=== PATIENT | female | born 1995 | race Caucasian/White ===

== ENCOUNTER 2016-11-01 21:55 | Emergency (ER) | payer MEDICAID ==
[~2016-11-01] VITALS: Ht 154.9 cm; Wt 52.6 kg
[2016-11-01 21:58] VITALS: BP 122/84
--- NOTE | 2016-11-01 22:03 | NUR ---
PATIENT AMBULATED TO ER OF1.
--- NOTE | 2016-11-01 22:30 | NUR ---
PATIENT BEING EVALUATED BY DR. WALKER.
[2016-11-01 22:40] VITALS: BP 117/74
== END 2016-11-01 22:40 | disposition home or self-care (01) ==
LOC: MED 21:55
DX: H66.93 Otitis media, unspecified, bilateral (principal); R20.2 Paresthesia of skin
CPT/HCPCS: 99283

== ENCOUNTER 2018-03-15 16:09 | Emergency (ER) | payer MEDICAID ==
[~2018-03-15] VITALS: Ht 154.9 cm; Wt 61.2 kg
[2018-03-15 16:21] VITALS: BP 125/78
[2018-03-15 18:19] VITALS: BP 130/75
== END 2018-03-15 18:20 | disposition home or self-care (01) ==
LOC: MED 16:09
DX: K21.9 Gastro-esophageal reflux disease without esophagitis (principal)
CPT/HCPCS: 70360; 87081; 99285

== ENCOUNTER 2018-05-29 01:59 | Emergency (ER) | payer MEDICAID ==
[~2018-05-29] VITALS: Ht 154.9 cm; Wt 57.2 kg
--- NOTE | 2018-05-29 02:02 | NUR ---
PT AMBULATED TO ER BED 11
--- NOTE | 2018-05-29 02:02 | NUR ---
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 Reports she has been stressed lately concerned about a "lump" in her throat after coughing for several days. Pt is AOX4, GCS 15, NAD at this time. Pt is calm and cooperative. HR 120's on monitor. Denies any pain at this time. Denies PMH
[2018-05-29 02:06] VITALS: BP 120/75
[2018-05-29 02:38] VITALS: BP 118/72
== END 2018-05-29 02:38 | disposition home or self-care (01) ==
LOC: MED 01:59
DX: F41.9 Anxiety disorder, unspecified (principal); R22.1 Localized swelling, mass and lump, neck
CPT/HCPCS: 99284

== ENCOUNTER 2018-06-02 08:15 | Emergency (ER) | payer MEDICAID ==
[~2018-06-02] VITALS: Ht 160 cm; Wt 55.4 kg
[2018-06-02 08:22] VITALS: BP 139/77
[2018-06-02 09:28] VITALS: BP 120/75
== END 2018-06-02 09:28 | disposition home or self-care (01) ==
LOC: MED 08:15
DX: F41.0 Panic disorder [episodic paroxysmal anxiety] (principal)
CPT/HCPCS: 99284

== ENCOUNTER 2018-06-20 09:15 | Emergency (ER) | payer MEDICAID ==
[~2018-06-20] VITALS: Ht 162.6 cm; Wt 56.4 kg
[2018-06-20 09:17] VITALS: BP 123/80
--- NOTE | 2018-06-20 09:23 | NUR ---
pt ambulates to give urine sample at this time.
--- NOTE | 2018-06-20 09:26 | NUR ---
23 yo f bib self w/ c/o uti symptoms since yesterday. reports that she has been admitted for pyelonephritis r/t uti in the past here at [facility]. reports this time she has also had upper back pain w/ the flank pain and dysuria. denies n/v/d/fever
[2018-06-20] MEDS ORDERED: PHENAZOPYRIDINE 100 MG TAB PO ONE (09:55)
[2018-06-20 10:31] VITALS: BP 123/80
--- NOTE | 2018-06-20 10:31 | NUR ---
Patient discharged with v/s stable. Written and verbal after care instructions given and explained. Patient alert, oriented and verbalized understanding of instructions. Ambulatory with steady gait. All questions addressed prior to discharge. ID band removed. Patient advised to follow up with PMD. Rx of bactrim, phenazopyridine given. Patient educated on indication of medication including possible reaction and side effects. Opportunity to ask questions provided and answered.
== END 2018-06-20 10:31 | disposition home or self-care (01) ==
LOC: MED 09:15
DX: N39.0 Urinary tract infection, site not specified (principal)
CPT/HCPCS: 81002; 81025; 99283

== ENCOUNTER 2018-06-21 21:09 | Emergency (ER) | payer MEDICAID ==
[~2018-06-21] VITALS: Ht 154.9 cm; Wt 55.8 kg
[2018-06-21 21:21] VITALS: BP 106/70
--- NOTE | 2018-06-21 23:36 | NUR ---
PT AMBULATED TO ER BED 07
--- NOTE | 2018-06-21 23:50 | NUR ---
23/F PRESENTS TO ED, C/O FLANK AND LOWER BACK PAIN AND SUPRAPUBIC PAIN, X2 DAYS. PT REPORTS MINIMAL BURNING DYSURIA. PT DENIES FEVER, N/V/D. PT REPORTS TAKING IBUPROFEN WITH LITTLE RELIEF. PT AOX4, GCS 15, RR EVEN AND UNLABORED. LUNG SOUNDS CLEAR BL. DENIES MED HX OR RX.
--- NOTE | 2018-06-22 00:30 | NUR ---
DR ZARAGOZA AT BEDSIDE
[2018-06-22 00:56] VITALS: BP 105/61
== END 2018-06-22 00:56 | disposition home or self-care (01) ==
LOC: MED 21:09
DX: S39.012A Strain of muscle, fascia and tendon of lower back, initial encounter (principal); X58.XXXA Exposure to other specified factors, initial encounter; Y93.89 Activity, other specified; Y92.89 Other specified places as the place of occurrence of the external cause; Y99.8 Other external cause status
CPT/HCPCS: 81002; 81025; 99284

== ENCOUNTER 2018-06-26 02:08 | Emergency (ER) | payer MEDICAID ==
[~2018-06-26] VITALS: Ht 154.9 cm; Wt 53.5 kg
[2018-06-26 02:23] VITALS: BP 123/91
--- NOTE | 2018-06-26 02:23 | NUR ---
PT AMBULATED TO BED 6 WITH VSS.
--- NOTE | 2018-06-26 02:45 | NUR ---
Dr. Viveros evaluating patient at bedside.
--- NOTE | 2018-06-26 02:46 | NUR ---
PT BIB SELF VIA WALKING FOR ANXIETY. PT REPORTS FEELING ANXIOUS AND HER HEART BEAT IS FAST, HEART RATE IS CURRENTLY 116. PT DENIES CP, SOB, HEADACHE, BLURRED VISSION, DIZZYNESS, AND N/V. CAP REFIL <3 SEC, NO EDEMA PRESENT. RR SYMMETRICAL AND NON-LABORED. VSS. 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 PT 3RD CHILD WAS BORN 9 MONTHS AGO. PT DENIES SI. ER MD TO SEE PT. SIDE RAIL UP X1, BED IN LOWEST POSITION, HOB ELEVATED. WILL CONTINUE TO MONITOR. MEDHX: ANXIETY RX:ATIVAN
[2018-06-26] MEDS ORDERED: LORazepam 2 MG/ML VIAL IM ONE (02:50)
--- NOTE | 2018-06-26 03:54 | NUR ---
PT RESTING IN BED, VSS, NO APPARENT DISTRESS. PT REPORTS NO ANXIETY AT THIS TIME AND THAT SHE FEELS RELAXED. HOB ELEVATED, SIDE RAIL UPX1, BED IN LOWEST POSITION. WILL CONTINUE TO MONITOR.
[2018-06-26 06:14] VITALS: BP 109/59
== END 2018-06-26 06:14 | disposition home or self-care (01) ==
LOC: MED 02:08
DX: F41.9 Anxiety disorder, unspecified (principal); R03.0 Elevated blood-pressure reading, without diagnosis of hypertension
CPT/HCPCS: 96372; 99284; J2060; 99283

== ENCOUNTER 2018-06-28 07:57 | Emergency (ER) | payer MEDICAID ==
[~2018-06-28] VITALS: Ht 154.9 cm; Wt 53.1 kg
[2018-06-28 08:04] VITALS: BP 116/67
--- NOTE | 2018-06-28 08:04 | NUR ---
PT AMBULATED TO ER BED 04
--- NOTE | 2018-06-28 08:14 | NUR ---
Note undone in EDM - 06/28/18 at 0830 by MED1 PT C/O ANXIETY, FATIGUE, RACING HEART, CONCERENED POTASSIUM LEVELS MAY BE LOW. FEELINGS STARTED 2 DAYS AGO. DENIES PAIN. LMP 06/27/2018. DENIES N/V/D, SOB, FEVER, COUGH. LAST BM THIA AM: NORMAL. LMP 06/27/18. G 3. LAST GIVING X 5 MONTHS AGO. HX: DENIES RX: DENIES
--- NOTE | 2018-06-28 08:14 | NUR ---
PT C/O ANXIETY, FATIGUE, RACING HEART, CONCERENED POTASSIUM LEVELS MAY BE LOW. FEELINGS STARTED 2 DAYS AGO. DENIES PAIN. LMP 06/27/2018. DENIES N/V/D, SOB, FEVER, COUGH. LAST BM THIS AM: NORMAL. LMP 06/27/18. G 3. LAST GIVING X 5 MONTHS AGO. DENIES TO HURT HERSELF OR OTHERS. SKIN IS PINK/WARM/DRY. PATIENT POSITIONED FOR COMFORT; HOB ELEVATED; BEDRAILS UP X2; BED DOWN. ER MD MADE AWARE OF PT STATUS HX: DENIES RX: DENIES
--- NOTE | 2018-06-28 08:45 | NUR ---
Patient being evaluated by DR HILL at bedside.
--- NOTE | 2018-06-28 08:54 | NUR ---
LAB AT BEDSIDE.
[2018-06-28 09:21] LABS: ANION GAP 13.2 (8-16); CARBON DIOXIDE 26.1 mmol/L (21-32); CREATININE 0.7 mg/dL (0.6-1.3); POTASSIUM 3.3 mmol/L (3.5-5.1)
[2018-06-28] MEDS ORDERED: POTASSIUM CHLORIDE 10 MEQ TABER PO ONE (09:35)
[2018-06-28] MEDS ORDERED: MAGNESIUM OXIDE 400 MG TAB PO ONE (09:35)
[2018-06-28 09:59] VITALS: BP 115/87
--- NOTE | 2018-06-28 09:59 | NUR ---
Patient discharged with v/s stable. Written and verbal after care instructions given and explained. Patient verbalized understanding. Ambulatory with steady gait. All questions addressed prior to discharge. Advised to follow up with PMD.
== END 2018-06-28 09:59 | disposition home or self-care (01) ==
LOC: MED 07:57
DX: F41.9 Anxiety disorder, unspecified (principal); E87.6 Hypokalemia; F32.9 Major depressive disorder, single episode, unspecified
CPT/HCPCS: 36415; 80048; 99283; 99284

== ENCOUNTER 2018-07-15 13:23 | Emergency (ER) | payer MEDICAID ==
[~2018-07-15] VITALS: Ht 160 cm; Wt 54.4 kg
[2018-07-15 13:24] VITALS: BP 117/81
--- NOTE | 2018-07-15 14:51 | NUR ---
PT AMBULATES TO BED 3
--- NOTE | 2018-07-15 14:52 | NUR ---
PT PRESENTS TO THE ED WITH C/O LIGHTHEADEDNESS AND DIZZINESS. PT STATES THAT HER SYMPTOMS HAVE BEEN GOING ON FOR A WEEK. PT REPORTS THAT SHE WAS DIAGNOSED WITH POST DEPRESSION AND SHE HAS BEEN SEING A THERAPIST AND WAS RECECENTLY STARTED ON PROZAC 2WEEKS AGO. PT STATES THAT SHE WOKE UP "SHAKY" THIS MORNING. PATIENT DENIES PAIN. NO S/S OF DISTRESS NOTED AT THIS TIME
[2018-07-15 16:16] VITALS: BP 117/81
--- NOTE | 2018-07-15 16:17 | NUR ---
DPatient discharged with v/s stable. Written and verbal after care instructions given and explained. Patient verbalized understanding. Ambulatory with steady gait. All questions addressed prior to discharge. Advised to follow up with PMD.
== END 2018-07-15 16:17 | disposition home or self-care (01) ==
LOC: MED 13:23
DX: F41.9 Anxiety disorder, unspecified (principal); F53.0 Postpartum depression
CPT/HCPCS: 81002; 81025; 99284

== ENCOUNTER 2018-07-31 23:28 | Emergency (ER) | payer MEDICAID ==
[~2018-07-31] VITALS: Ht 154.9 cm; Wt 53.1 kg
[2018-07-31 23:34] VITALS: BP 133/80
--- NOTE | 2018-08-01 01:42 | NUR ---
PT AMBULATED TO THE RESTROOM, URINE WAS COLLECTED.
--- NOTE | 2018-08-01 01:43 | NUR ---
PT AMBULATED TO BED #11
--- NOTE | 2018-08-01 01:45 | NUR ---
PATIENT PRESENTS ER WITH C/O BURNING AND FOUL SMELL WHEN URINATING X 2 DAYS. PT IS A/O X4. PATIENT STATES PAIN OF 4/10 AT THIS TIME; VSS; PATIENT POSITIONED FOR COMFORT; HOB ELEVATED; BEDRAILS UP X2; BED DOWN. ER MD MADE AWARE OF PT STATUS. NKA AND NO MEDICAL HX
[2018-08-01 04:13] VITALS: BP 133/80
--- NOTE | 2018-08-01 04:13 | NUR ---
Patient discharged with v/s stable. Written and verbal after care instructions given and explained. Patient alert, oriented and verbalized understanding of instructions. Ambulatory with steady gait. All questions addressed prior to discharge. ID band removed. Patient advised to follow up with PMD. Rx of pyridium and cipro was given. Patient educated on indication of medication including possible reaction and side effects. Opportunity to ask questions provided and answered.
== END 2018-08-01 04:13 | disposition home or self-care (01) ==
LOC: MED 23:28
DX: N39.0 Urinary tract infection, site not specified (principal)
CPT/HCPCS: 81002; 81025; 99283

== ENCOUNTER 2018-08-01 16:47 | Emergency (ER) | payer MEDICAID ==
[~2018-08-01] VITALS: Ht 154.9 cm; Wt 53.1 kg
[2018-08-01 16:50] VITALS: BP 134/88
--- NOTE | 2018-08-01 17:28 | NUR ---
C/O 5/10 CRAMPING LOWER ABD PAIN RADIATING TO LOWER BACK X TODAY. BURNING URINATION. DENIES N/V/D, OR FERVER. PT WAS SEEN AT [facility] LAST NIGHT FOR UTI, PT STARTING TAKING ABX TO TODAY MEDHX:NONE RX: CIPROFLAXACIN
--- NOTE | 2018-08-01 18:19 | NUR ---
Patient being evaluated by DR BURNETT at bedside.
--- NOTE | 2018-08-01 18:19 | NUR ---
DR BURNETT AT BEDSIDE FOR PT EVALUATION
[2018-08-01] MEDS ORDERED: KETOROLAC 60 MG/2 ML VIAL IM ONE (18:30)
[2018-08-01] MEDS ORDERED: LACTULOSE 20 GM/30 ML UDC PO ONE (18:30)
[2018-08-01 19:02] VITALS: BP 125/67
--- NOTE | 2018-08-01 19:02 | NUR ---
Patient discharged with v/s stable. Written and verbal after care instructions given and explained. Patient alert, oriented and verbalized understanding of instructions. Ambulatory with steady gait. All questions addressed prior to discharge. ID band removed. Patient advised to follow up with PMD. Rx of COLESANDRA given. Patient educated on indication of medication including possible reaction and side effects. Opportunity to ask questions provided and answered.
== END 2018-08-01 19:02 | disposition home or self-care (01) ==
LOC: MED 16:47
DX: N39.0 Urinary tract infection, site not specified (principal); K59.00 Constipation, unspecified
CPT/HCPCS: 81002; 96372; 99283; J1885

== ENCOUNTER 2018-08-06 09:55 | Emergency (ER) | payer MEDICAID ==
[~2018-08-06] VITALS: Ht 162.6 cm; Wt 65.8 kg
--- NOTE | 2018-08-06 10:19 | NUR ---
Patient ambulated to ER bed 12
[2018-08-06 10:26] VITALS: BP 120/65
--- NOTE | 2018-08-06 10:29 | NUR ---
23Y/F BIB SELF WITH C/O FLANK PAIN X 5 DAYS. PT STATES SHE WAS HERE EARLIER THIS WEEK FOR A UTI, - BURNING, PAIN AND PRESSURE, PT IS AAOX4, VSS AT THIS TIME, BED DOWN, BEDRAIL UP X 1, ER MD AWARE AND NOTIFIED OF PT STATUS.
[2018-08-06 11:22] LABS: APPEARANCE,URINE CLEAR (CLEAR); BILIRUBIN,URINE NEGATIVE (NEGATIVE); BLOOD, URINE NEGATIVE (NEGATIVE); COLOR,URINE YELLOW (YELLOW); LEUKOCYTE ESTERASE ,URINE NEGATIVE (NEGATIVE); NITRITE, URINE NEGATIVE (NEGATIVE); PH,URINE 6.5 (5.0-9.0); UGLUCOSE NEGATIVE (NEGATIVE)
[2018-08-06 12:23] VITALS: BP 119/62
--- NOTE | 2018-08-06 12:24 | NUR ---
Patient discharged with v/s stable. Written and verbal after care instructions given and explained. Patient alert, oriented and verbalized understanding of instructions. Ambulatory with steady gait. All questions addressed prior to discharge. ID band removed. Patient advised to follow up with PMD. Rx of IBU given. Patient educated on indication of medication including possible reaction and side effects. Opportunity to ask questions provided and answered.
== END 2018-08-06 12:24 | disposition home or self-care (01) ==
LOC: MED 09:55
DX: M54.5 Low back pain (principal); R10.30 Lower abdominal pain, unspecified
CPT/HCPCS: 74018; 81003; 81025; 99284

== ENCOUNTER 2018-10-25 01:21 | Emergency (ER) | payer MEDICAID ==
[~2018-10-25] VITALS: Ht 154.9 cm; Wt 56.7 kg
[2018-10-25 01:25] VITALS: BP 110/82
--- NOTE | 2018-10-25 01:28 | NUR ---
27 Y/O FEMALE PRESENTS TO ED WITH C/O ANXIETY ATTACK X30 MIN. STATES SHE WAS AT HOME WHEN SHE FEELT HER HR ELEVATE AND COULD FEEL HER HEART POUNDING. PT BECAME NERVOUSE AND CAME TO ER. HR 121. NO C/O CP. NO SOB/DYSPNEA. POSITOINED IN BED FOR COMFORT. ER MD AWARE. CONTINUE TO MONITOR.
--- NOTE | 2018-10-25 01:28 | NUR ---
TO LOBBY A/W BED, AMBULATORY
[2018-10-25] MEDS ORDERED: LORazepam 0.5 MG TAB PO ONE (02:25)
--- NOTE | 2018-10-25 02:30 | NUR ---
PT IN BED RESTING WITH EYES OPEN. STATES ANXIETY HAS REDUCED. VSS. CONTINUE TO MONITOR.
--- NOTE | 2018-10-25 03:15 | NUR ---
PT NOTED RESTING WITH EYES CLOSED, RELAXED AND CALM. NAD NOTED. VSS. APPEARS COMFORTABLE.
[2018-10-25 03:28] VITALS: BP 100/67
--- NOTE | 2018-10-25 03:28 | NUR ---
Patient discharged with v/s stable. Written and verbal after care instructions given and explained. Patient alert, oriented and verbalized understanding of instructions. Ambulatory with steady gait. All questions addressed prior to discharge. ID band removed. Patient advised to follow up with PMD. Rx of Ativan 0.5 mg given. Patient educated on indication of medication including possible reaction and side effects. Opportunity to ask questions provided and answered.
== END 2018-10-25 03:28 | disposition home or self-care (01) ==
LOC: MED 01:21
DX: F41.9 Anxiety disorder, unspecified (principal)
CPT/HCPCS: 93005; 99284

== ENCOUNTER 2018-10-31 01:03 | Emergency (ER) | payer MEDICAID ==
[~2018-10-31] VITALS: Ht 154.9 cm; Wt 56.7 kg
--- NOTE | 2018-10-31 01:07 | NUR ---
PT AMBULATED TO ER BED 05
[2018-10-31 01:10] VITALS: BP 137/90
--- NOTE | 2018-10-31 01:12 | NUR ---
23 YO F BIB SELF C/O 10 DULL LOWER BACK PAIN THAT RADIATES INTO PELVIC REGION X 3 DAYS. PT STATES SHE WAS SEEN AT HER PMD X1 AGO AND WAS DX WITH UTI. SHE FINISHED HER ABX 2 DAYS AGO. SHE DENIES URINARY BURNING, FEVER/CHILLS, ABD PAIN, NVD, OR OTHER UTI S/SX AT THIS TIME. -- PT IS CALM, COOPERATIVE, ANSWERING QUESTIONS APPROPRIATELY. -- SKIN PINK, WARM, DRY. BREATHING EVEN, UNLABORED. PMH-- DENIES RX-- DENIES
[2018-10-31] MEDS ORDERED: KETOROLAC 60 MG/2 ML VIAL IM ONE (01:15)
[2018-10-31 02:07] VITALS: BP 126/86
--- NOTE | 2018-10-31 02:07 | NUR ---
Patient discharged with v/s stable. Written and verbal after care instructions given and explained. Patient alert, oriented and verbalized understanding of instructions. Ambulatory with steady gait. All questions addressed prior to discharge. ID band removed. Patient advised to follow up with PMD. Rx of Motrin and Cipro given. Patient educated on indication of medication including possible reaction and side effects. Opportunity to ask questions provided and answered.
== END 2018-10-31 02:07 | disposition home or self-care (01) ==
LOC: MED 01:03
DX: M54.5 Low back pain (principal)
CPT/HCPCS: 81002; 81025; 96372; 99283; J1885

== ENCOUNTER 2018-12-01 17:13 | Emergency (ER) | payer MEDICAID ==
[~2018-12-01] VITALS: Ht 154.9 cm; Wt 59.0 kg
[2018-12-01 17:36] VITALS: BP 126/93
--- NOTE | 2018-12-01 18:04 | NUR ---
PATIENT AMBULATED TO BED 3
--- NOTE | 2018-12-01 18:20 | NUR ---
PT BIB SELF WITH C/O BL FLANK PAIN SINCE LAST THREE DAYS.STATES TO HAVE PAIN 3/10 AT THIS TIME ., DENIES TRAUMA OR INJURY PT. DENIES ANY VAGINAL DISCHARGE, NO PROBLEM REGARDING URINATION. HAS HX OF FREQUENT UTI AND LOW K+. ER MD TO SEE THE PT. NKA.
[2018-12-01 18:54] LABS: APPEARANCE,URINE CLEAR (CLEAR); BILIRUBIN,URINE NEGATIVE (NEGATIVE); BLOOD, URINE NEGATIVE (NEGATIVE); COLOR,URINE YELLOW (YELLOW); LEUKOCYTE ESTERASE ,URINE NEGATIVE (NEGATIVE); NITRITE, URINE NEGATIVE (NEGATIVE); UGLUCOSE NEGATIVE (NEGATIVE)
[2018-12-01 19:00] LABS: BARBITURATE, URINE NEG. ng/ml (NEG <=200); BENZODIAZEPINE, URINE NEG. ng/mL (NEG <=200); CANNABINOID, URINE NEG. ng/mL (NEG <=50); COCAINE, URINE NEG. ng/mL (NEG <=300); OPIATE, URINE NEG. ng/mL (NEG <=2000); PHENCYCLIDINE SCREEN,URINE NEG. ng/mL (NEG <=25)
--- NOTE | 2018-12-01 19:18 | NUR ---
REPORT GIVEN TO PM NURSE. PT STABLE.
--- NOTE | 2018-12-01 19:23 | NUR ---
DR. JO AT BEDSIDE.
[2018-12-01] MEDS ORDERED: KETOROLAC 60 MG/2 ML VIAL IM ONE (19:25)
[2018-12-01 19:51] VITALS: BP 132/88
== END 2018-12-01 19:51 | disposition home or self-care (01) ==
LOC: MED 17:13
DX: R10.9 Unspecified abdominal pain (principal); M54.9 Dorsalgia, unspecified
CPT/HCPCS: 80305; 81003; 81025; 96372; 99283; J1885

== ENCOUNTER 2018-12-13 18:36 | Emergency (ER) | payer MEDICAID ==
[~2018-12-13] VITALS: Ht 154.9 cm; Wt 54.4 kg
[2018-12-13 19:15] VITALS: BP 124/95
--- NOTE | 2018-12-13 19:19 | NUR ---
PT TO LOBBY VSS.
--- NOTE | 2018-12-13 20:20 | NUR ---
PT AMBULATED TO BED WITH SON
--- NOTE | 2018-12-13 20:30 | NUR ---
23/F PRESENTS TO ED WITH PARTNER AND 2 KIDS, C/O PAIN ON R SIDE OF NECK AND R SHOULDER, X3 HRS S/P FALLING FROM BED WITH IMPACT TO R SHOULDER AND HER CHILD SUBSEQUENTLY JUMPING ON HER. PT DENIES LOC, N/V, OR CERVICAL SPINE TENDERNESS. PT AWAKE AND ALERT, PERRLA [place], SKIN NORMAL WARM AND DRY, RR EVEN AND UNLABORED DENIES MED HX OR RX.
[2018-12-13 21:00] VITALS: BP 118/80
--- NOTE | 2018-12-13 21:00 | NUR ---
Patient discharged with v/s stable. Written and verbal after care instructions given and explained. Patient alert, oriented and verbalized understanding of instructions. Ambulatory with steady gait. All questions addressed prior to discharge. ID band removed. Patient advised to follow up with PMD. Rx of ACETAMINOPHEN 500MG, IBUPROFEN 400MG given. Patient educated on indication of medication including possible reaction and side effects. Opportunity to ask questions provided and answered.
== END 2018-12-13 21:00 | disposition home or self-care (01) ==
LOC: MED 18:36
DX: S16.1XXA Strain of muscle, fascia and tendon at neck level, initial encounter (principal); W08.XXXA Fall from other furniture, initial encounter; Y93.89 Activity, other specified; Y92.89 Other specified places as the place of occurrence of the external cause; Y99.8 Other external cause status
CPT/HCPCS: 99282

== ENCOUNTER 2018-12-21 23:33 | Emergency (ER) | payer MEDICAID ==
[~2018-12-21] VITALS: Ht 154.9 cm; Wt 55.3 kg
[2018-12-21 23:45] VITALS: BP 125/80
--- NOTE | 2018-12-21 23:45 | NUR ---
to bed # 02 ambulatory
--- NOTE | 2018-12-21 23:59 | NUR ---
URINE HCG DONE AND IS NEGATIVE.
--- NOTE | 2018-12-22 00:04 | NUR ---
ER-MD CAME BY BEDSIDE TO EVALUATE PT.
--- NOTE | 2018-12-22 00:08 | NUR ---
URINE DIPSTICK DONE. REPORT NOTED BY CAYETANO.
--- NOTE | 2018-12-22 00:18 | NUR ---
DISCHARGED STABLE. PRESCRIPTION, VERBAL AND WRITTEN AFTERCARE INSTRUCTIONS GIVEN. VERBALIZED UNDERSTANDING. LEFT AMBULATORY WITH STABLE GAIT.
[2018-12-22 00:20] VITALS: BP 125/80
== END 2018-12-22 00:18 | disposition home or self-care (01) ==
LOC: MED 23:33
DX: G44.209 Tension-type headache, unspecified, not intractable (principal)
CPT/HCPCS: 81002; 81025; 99282

== ENCOUNTER 2019-01-09 20:00 | Emergency (ER) | payer MEDICAID ==
[~2019-01-09] VITALS: Ht 154.9 cm; Wt 54.0 kg
[2019-01-09 20:04] VITALS: BP 129/83
--- NOTE | 2019-01-09 21:28 | NUR ---
PT AMBULATED TO BED 3
--- NOTE | 2019-01-09 21:58 | NUR ---
23 Y/O F PRESENTED TO ED WITH C/O ANXIETY X2 DAYS. AAOX4. PER PT "I FEEL PRESSURE IN BACK AND IT FEELS LIKE ITS HARD TO BREATHE. USUALLY MY ANXIETY COMES AND GOES BUT ITS BEEN BAD THE LAST FEW DAYS." BILATERAL LUNGS CLEAR THROUGHOUT. O2 SATURATION MAINTAINED AT 97% ON ROOM AIR. DENIES PAIN, PT STATED "I JUST FEEL UNCOMFORTABLE." FAMILY AT BEDSIDE. WILL CONTINUE TO MONITOR.
--- NOTE | 2019-01-09 23:22 | NUR ---
PT AWAKE AND LYING IN BED. VSS AT THIS TIME. WILL CONTINUE TO MONITOR.
--- NOTE | 2019-01-09 23:31 | NUR ---
DR JO AT BEDSIDE
[2019-01-09 23:40] VITALS: BP 105/63
--- NOTE | 2019-01-09 23:40 | NUR ---
Patient discharged with v/s stable. Written and verbal after care instructions given and explained. Patient alert, oriented and verbalized understanding of instructions. Ambulatory with steady gait. All questions addressed prior to discharge. ID band removed. Patient advised to follow up with PMD. Rx of Motrin, Atarax given. Patient educated on indication of medication including possible reaction and side effects. Opportunity to ask questions provided and answered.
== END 2019-01-09 23:40 | disposition home or self-care (01) ==
LOC: MED 20:00
DX: F41.9 Anxiety disorder, unspecified (principal); M54.9 Dorsalgia, unspecified
CPT/HCPCS: 99283

== ENCOUNTER 2019-02-21 01:48 | Emergency (ER) | payer MEDICAID ==
[~2019-02-21] VITALS: Ht 154.9 cm; Wt 53.5 kg
[2019-02-21 01:50] VITALS: BP 123/71
[2019-02-21] MEDS ORDERED: CIPROFLOXACIN 250 MG TAB PO ONE (01:55)
[2019-02-21] MEDS ORDERED: CIPROFLOXACIN 250 MG TAB ONE (01:59)
[2019-02-21 02:00] VITALS: BP 123/71
== END 2019-02-21 01:59 | disposition home or self-care (01) ==
LOC: MED 01:48
DX: A09 Infectious gastroenteritis and colitis, unspecified (principal)
CPT/HCPCS: 99283

== ENCOUNTER 2019-02-23 22:47 | Emergency (ER) | payer MEDICAID ==
[~2019-02-23] VITALS: Ht 154.9 cm; Wt 52.8 kg
[2019-02-23 23:07] VITALS: BP 118/85
--- NOTE | 2019-02-23 23:20 | NUR ---
PT AMBULATED TO BED 03 WITH STEADY GAIT. PROVIDING URINE SAMPLE IN RR.
--- NOTE | 2019-02-23 23:25 | NUR ---
23 Y/O F PRESENTS TO ER C/O OF ABDOMINAL CRAMPING IN LOWER ABDOMEN RADIATING TO BACK. PAIN LEVEL 3/10, CRAMPING. PT DENIES N/V/D. BOWEL SOUNDS ACTIVE X4 QUADRANTS. ABDOMEN IS SOFT, NONTENDER. LAST BM 02/23/19, NORMAL. PT WAS SEEN AT [facility] X 3 DAYS AGO FOR SAME SYMTPOMS AND WAS PRESCRIBED CIPRO 500MG BID. NKA. MED HX: ANXIETY. SAFETY MEASURES IN PLACE. ERMD AT BEDSIDE.
--- NOTE | 2019-02-23 23:40 | NUR ---
LAB AT BEDSIDE
[2019-02-23 23:46] LABS: APPEARANCE,URINE CLEAR (CLEAR); BILIRUBIN,URINE NEGATIVE (NEGATIVE); BLOOD, URINE NEGATIVE (NEGATIVE); COLOR,URINE YELLOW (YELLOW); LEUKOCYTE ESTERASE ,URINE 1+ (NEGATIVE); NITRITE, URINE NEGATIVE (NEGATIVE); UGLUCOSE NEGATIVE (NEGATIVE)
[2019-02-23 23:46] LABS: BASOPHILS % (AUTO) 0.5 % (0.0-2.0); EOSINOPHILS # (AUTO) 0.2 K/uL (0-0.4); EOSINOPHILS % (AUTO) 3.2 % (0.0-4.0); HEMATOCRIT 37.5 % (36-48); HEMOGLOBIN 12.6 g/dL (12.0-16.0); LYMPHOCYTES # (AUTO) 2.2 K/uL (2.5-16.5); LYMPHOCYTES % (AUTO) 29.1 % (20.5-51.1); MEAN CORPUSCULAR HEMOGLOBIN 30 pg (27-31); MEAN CORPUSCULAR HGB CONC 34 g/dL (33-37); MEAN CORPUSCULAR VOLUME 90.4 fL (80-94); MONOCYTES # (AUTO) 0.6 K/uL (0.8-1.0); NEUTROPHILS # (AUTO) 4.5 K/uL (1.8-7.7); NEUTROPHILS % (AUTO) 59.2 % (42.2-75.2); PLATELET COUNT (AUTO) 200 K/uL (140-450); RED BLOOD CELL COUNT(AUTO) 4.15 MIL/uL (4.20-5.40); RED CELL DISTRIBUTION WIDTH 14.3 % (11.6-13.7); WHITE BLOOD COUNT (AUTO) 7.6 K/uL (4.8-10.8)
[2019-02-23 23:56] LABS: ANION GAP 11.1 (8-16); CARBON DIOXIDE 23.6 mmol/L (21-32); CREATININE 0.9 mg/dL (0.6-1.3); POTASSIUM 3.7 mmol/L (3.5-5.1)
[2019-02-24 00:01] LABS: ALBUMIN 3.8 g/dL (3.4-5.0); TOTAL BILIRUBIN 0.4 mg/dL (0.0-1.0)
[2019-02-24 00:05] LABS: RBC,URINE 0-5 /HPF (0-5)
--- NOTE | 2019-02-24 00:09 | NUR ---
PT RESTING IN BED WITH EYES CLOSED, EASILY ARROUSABLE. WILL CONTINUE TO MONITOR.
[2019-02-24 00:41] VITALS: BP 120/65
== END 2019-02-24 00:41 | disposition home or self-care (01) ==
LOC: MED 22:47
DX: R10.30 Lower abdominal pain, unspecified (principal); R14.0 Abdominal distension (gaseous); R19.7 Diarrhea, unspecified
CPT/HCPCS: 36415; 80053; 81001; 81025; 83690; 85025; 87086; 99283

== ENCOUNTER 2021-04-15 04:15 | Emergency (ER) | payer SELFPAY ==
[~2021-04-15] VITALS: Ht 154.9 cm; Wt 54.4 kg
[2021-04-15 04:38] VITALS: BP 121/67
[2021-04-15] MEDS ORDERED: ATI.5 PO (06:17)
[2021-04-15] MEDS: LORazepam 1 MG TAB PO ONE (06:21)
[2021-04-15 06:36] VITALS: BP 118/68
== END 2021-04-15 06:36 | disposition home or self-care (01) ==
LOC: MED 04:15
DX: F41.9 Anxiety disorder, unspecified (principal); Z79.899 Other long term (current) drug therapy
CPT/HCPCS: 99283